=== PATIENT | female | born 1995 | race Caucasian/White ===

== ENCOUNTER 2016-09-30 18:05 | Emergency (ER) | payer OTHER ==
[~2016-09-30] VITALS: Ht 157.5 cm; Wt 82.3 kg
[~2016-09-30 18:05] MED LIST: FLUT0.15 NAE; GABA-113 PO; [UNRECOGNIZED DRUG - CODE] PO; [UNRECOGNIZED DRUG - CODE] PO
[2016-09-30 18:14] VITALS: TEMP 36.9; Ht 157.5 cm; Wt 82.3 kg
[2016-09-30] MEDS ORDERED: PRED10TA PO (18:46)
[2016-09-30] MEDS ORDERED: AMOX875T PO (18:46)
[2016-09-30] MEDS ORDERED: BUPR75TA20 PO (18:46)
[2016-09-30] MEDS ORDERED: TRAZ50TA35 PO (19:13)
[2016-09-30 19:31] VITALS: BP 124/77; PULSE 108; O2SAT 95
[2016-09-30] MEDS ORDERED: NRN600 PO (22:23)
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
== END 2016-09-30 19:32 | disposition home or self-care (01) ==
LOC: C.EDB 18:06 → C.EDD 19:32
DX: T22.222A Burn of second degree of left elbow, initial encounter (principal); X19.XXXA Contact with other heat and hot substances, initial encounter; Z79.899 Other long term (current) drug therapy; Z91.030 Bee allergy status; Z91.09 Other allergy status, other than to drugs and biological substances; Z88.8 Allergy status to other drugs, medicaments and biological substances; Z80.9 Family history of malignant neoplasm, unspecified; Z83.3 Family history of diabetes mellitus; Z83.79 Family history of other diseases of the digestive system; Z82.49 Family history of ischemic heart disease and other diseases of the circulatory system; Z82.0 Family history of epilepsy and other diseases of the nervous system

== ENCOUNTER → 2016-11-02 | Outpatient (CLI) | payer OTHER ==
[~2016-11-02] MED LIST changes: +AMOX875T PO; +BUPR75TA20 PO; -FLUT0.15 NAE; +NRN600 PO; +PRED10TA PO; +TRAZ50TA35 PO; -[UNRECOGNIZED DRUG - CODE] PO; -[UNRECOGNIZED DRUG - CODE] PO
[2016-11-04 21:57] LABS: CHLAMYDIA TRACH RNA*** NOT DETECTED (NOT DETECTED); GC (NEIS GONORRHOEAE)RNA** NOT DETECTED (NOT DETECTED)
== END | disposition home or self-care (01) ==
LOC: C.LABSPEC 13:35
PROVIDERS: ATTEND Obstetrics & Gynecology
DX: Z30.430 Encounter for insertion of intrauterine contraceptive device (principal)